=== PATIENT | female | born 1950 | race Caucasian/White ===

== ENCOUNTER 2019-03-15 16:26 | Emergency (ER) | payer SELFPAY ==
[2019-03-15 16:31] VITALS: RESP 20; O2SAT 100
[2019-03-15] MEDS ORDERED: Sodium Chloride 0.9% 1,000 ML IV ONE (16:48)
[2019-03-15 17:15] LABS: HEMOGLOBIN 9.5 g/dL (11.0-16.0); LYMPH # 1.4 K/uL (1.0-4.3); MEAN CORPUSCULAR HGB CONC 34.7 g/dL (33.0-37.0); MONO # 0.2 K/uL (0.0-0.8); NEUT # 1.3 K/uL (1.8-7.0); RBC 2.66 Mil/uL (3.80-5.20)
[2019-03-15 17:20] LABS: SQUAMOUS EPITHIAL 1 /hpf (0-5); URINE BACTERIA RARE (<OCC)
[2019-03-15 17:25] LABS: BASO % 0.2 % (0.0-2.0); LYMPH % 48.3 % (20.0-40.0); MEAN CELL VOLUME 102.8 fL (81.0-99.0); MEAN CORPUSCULAR HEMOGLOBIN 35.7 pg (27.0-31.0); MEAN PLATELET VOLUME 8.7 fL (7.2-11.7); MONO % 7.8 % (0.0-10.0); NEUT % 42.7 % (50.0-75.0); NRBC % 0.2 % (0.0-2.0); RED CELL DISTRIBUTION WIDTH 15.8 % (11.5-14.5)
[2019-03-15 17:26] LABS: URINE BILIRUBIN NEGATIVE (NEGATIVE); URINE BLOOD MODERATE (NEGATIVE); URINE CLARITY CLEAR (Clear); URINE COLOR YELLOW (YELLOW); URINE GLUCOSE (UA) NEG (Normal); URINE LEUKOCYTE ESTERASE TRACE Leu/uL (Negative); URINE PROTEIN NEGATIVE (NEGATIVE); URINE UROBILINOGEN 0.2 mg/dL (0.2-1.0)
[2019-03-15 17:34] LABS: ALB/GLOB RATIO 1.3 (1.0-2.1); ALBUMIN 4.1 g/dL (3.5-5.0); ALT/SGPT 8 U/L (9-52); AST/SGOT 21 U/L (14-36); BLOOD UREA NITROGEN 18 mg/dL (7-17); GFR NON-AFRICAN AMERICAN > 60; LIPASE 58 U/L (23-300)
[2019-03-15] MEDS ORDERED: Iodixanol 320 MG/ML 100 ML BOTTLE IV ONE (18:21)
[2019-03-15 19:24] VITALS: BP 163/78; PULSE 90; TEMP 97.6
--- NOTE | 2019-03-15 20:35 | C.PDOC ---
History Of Present Illness 68 y/o female presents to ED complaining of right-sided abdominal pain thats been on and off for one month. Patient denies nausea, vomiting, hematuria, or blood in stool. Also denies fever and recent travel. Patient states shes been eating normal. Chief Complaint (Nursing): Abdominal Pain History Per: Patient History/Exam Limitations: no limitations Onset/Duration Of Symptoms: Days Current Symptoms Are (Timing): Still Present Past Medical History Reviewed: Historical Data, Nursing Documentation, Vital Signs Vital Signs: Last Vital Signs Temp 97.6 F 03/15/19 19:23 Pulse 90 03/15/19 19:23 Resp 20 03/15/19 19:23 BP 163/78 H 03/15/19 19:23 Pulse Ox 100 03/15/19 19:23 - Medical History PMH: HTN Surgical History: Cholecystectomy Family History: States: No Known Family Hx - Social History Hx Alcohol Use: No Hx Substance Use: No - Immunization History Hx Tetanus Toxoid Vaccination: No Hx Influenza Vaccination: No Hx Pneumococcal Vaccination: No Review Of Systems Except As Marked, All Systems Reviewed And Found Negative. Constitutional: Negative for: Fever Gastrointestinal: Positive for: Abdominal Pain. Negative for: Nausea, Vomiting, Hematochezia Genitourinary: Negative for: Hematuria Physical Exam - Physical Exam Appears: Non-toxic, No Acute Distress Skin: Warm, Dry Head: Atraumatic Eye(s): bilateral: Normal Inspection Oral Mucosa: Moist Neck: Supple Cardiovascular: Rhythm Regular, No Murmur Respiratory: Normal Breath Sounds, No Rales, No Rhonchi, No Wheezing Gastrointestinal/Abdominal: Soft, Tenderness (minimal mild right-sided abdominal tenderness), No Guarding, No Rebound Extremity: Bilateral: Atraumatic, Normal ROM Neurological/Psych: Oriented x3, Normal Speech ED Course And Treatment - Laboratory Results Result Diagrams: 03/15/19 17:09 03/15/19 17:09 Lab Results: Total Bilirubin 0.3 mg/dL (0.2-1.3) 03/15/19 17:09 AST 21 U/L (14-36) 03/15/19 17:09 ALT 8 U/L (9-52) L 03/15/19 17:09 Alkaline Phosphatase 119 U/L (38-126) 03/15/19 17:09 Total Protein 7.3 g/dL (6.3-8.3) 03/15/19 17:09 Albumin 4.1 g/dL (3.5-5.0) 03/15/19 17:09 Globulin 3.1 gm/dL (2.2-3.9) 03/15/19 17:09 Albumin/Globulin Ratio 1.3 (1.0-2.1) 03/15/19 17:09 Lipase 58 U/L (23-300) 03/15/19 17:09 Urine Color Yellow (YELLOW) 03/15/19 17:09 Urine Clarity Clear (Clear) 03/15/19 17:09 Urine pH 6.0 (5.0-8.0) 03/15/19 17:09 Ur Specific Page 1.025 (1.003-1.030) 03/15/19 17:09 Urine Protein Negative mg/dL (NEGATIVE) 03/15/19 17:09 Urine Glucose (UA) Neg mg/dL (Normal) 03/15/19 17:09 Urine Ketones Negative mg/dL (NEGATIVE) 03/15/19 17:09 Urine Blood Moderate (NEGATIVE) 03/15/19 17:09 Urine Nitrate Negative (NEGATIVE) 03/15/19 17:09 Urine Bilirubin Negative (NEGATIVE) 03/15/19 17:09 Urine Urobilinogen 0.2 mg/dL (0.2-1.0) 03/15/19 17:09 Ur Leukocyte Esterase Trace Carlo/uL (Negative) 03/15/19 17:09 Urine WBC (Auto) 6 /hpf (0-5) H 03/15/19 17:09 Urine RBC (Auto) 14 /hpf (0-3) H 03/15/19 17:09 Ur Squamous Epith Cells 1 /hpf (0-5) 03/15/19 17:09 Urine Bacteria Rare (<OCC) 03/15/19 17:09 O2 Sat by Pulse Oximetry: 100 (RA) Pulse Ox Interpretation: Normal - CT Scan/US Abd/Pel CT Other Rad Studies (CT/US): Read By Radiologist, Radiology Report Reviewed CT/US Interpretation: FINDINGS: LUNG BASES: The lung bases appear clear. No pleural effusions are seen. LIVER: Unremarkable. GALLBLADDER AND BILE DUCTS: The gallbladder has been surgically removed. PANCREAS: Unremarkable. SPLEEN: Unremarkable. ADRENAL GLANDS: Unremarkable. KIDNEYS, URETERS, AND BLADDER: The kidneys appear within normal limits. There is no hydronephrosis or hydroureter. No urinary calculi are seen. STOMACH AND BOWEL: Unremarkable appearance of the stomach and bowel. No evidence of bowel obstruction. No evidence suggesting enteritis or colitis. Mild diverticular changes present sigmoid colon. Moderate amount of fecal material right side of the colon. APPENDIX: No evidence of acute appendicitis on CT examination. PERITONEUM: No free fluid. No free air. LYMPH NODES: No lymphadenopathy is evident. REPRODUCTIVE: Unremarkable as visualized. VASCULATURE: No evidence of abdominal aortic aneurysm. BONES: No aggressive appearing osseous lesion. No acute osseous pathology evident. IMPRESSION: Status post cholecystectomy. No suspicious mass or lymphadenopathy. Diverticular changes sigmoid colon. Moderate amount of fecal material right side of the colon. Clinical correlation advised. . Electronically signed on Mar 15, 2019 7:06:11 PM EDT by: Benoit Iqbal M.D., Certified by [employer], Diagnostic Radiology Medical Decision Making Medical Decision Making: Plan: --Abd/Pel CT --Labs --UA --IV fluids --Urine Culture Progress: Reviewed lab results and CT with patient. Patient does have a PMD and was advised to follow up early this week. If not able to do so, follow up with our clinic. Disposition - Disposition Referrals: [facility] [Outside] [facility] [Outside] Disposition: HOME/ ROUTINE Disposition Time: 19:00 Condition: GOOD Additional Instructions: W[place] MALIK, thank you for letting us take care of you today. The emergency medical care you received today was directed at your acute symptoms. If you were prescribed any medication, please fill it and take as directed. It may take several days for your symptoms to resolve. Return to the Emergency Department if your symptoms worsen, do not improve, or if you have any other problems. Please contact your doctor or call one of the physicians/clinics you have been referred to that are listed on the Patient Visit Information form that is included in your discharge packet. Bring any paperwork you were given at discharge with you along with any medications you are taking to your follow up visit. Our treatment cannot replace ongoing medical care by a primary care provider outside of the emergency department. Thank you for allowing the [facility] team to be part of your care today. Follow up with your doctor in 1-2 days. If you are not able to get an appointment this week, please follow up with our clinic. Prescriptions: Docusate [Colace] 100 mg PO Q8 PRN #20 cap PRN Reason: Constipation Instructions: High Fiber Diet, Constipation, Adult (DC) Forms: [employer] (Puerto [place]ican) - Clinical Impression Clinical Impression: Constipation, Thrombocytopenia, Anemia - Scribe Statement The provider has reviewed the documentation as recorded by the Karla Velazquez Provider Attestation: All medical record entries made by the Christiibhenrietta were at my direction and persona lly dictated by me. I have reviewed the chart and agree that the record accurately reflects my personal performance of the history, physical exam, medical decision making, and the department course for this patient. I have also personally directed, reviewed, and agree with the discharge instructions and disposition.
--- NOTE | 2019-03-16 12:38 | CT ---
Date of service: 03/15/2019 PROCEDURE: CT Abdomen and Pelvis with contrast HISTORY: right-sided abdominal pain COMPARISON: None available. TECHNIQUE: Contrast dose: 100 mL Visipaque 320 IV Radiation dose: Total exam DLP = 610.11 mGy-cm. This CT exam was performed using one or more of the following dose reduction techniques: Automated exposure control, adjustment of the mA and/or kV according to patient size, and/or use of iterative reconstruction technique. FINDINGS: LOWER THORAX: Bibasilar atelectasis. No visible pleural effusion or pneumothorax. LIVER: 4 mm hepatic dome hypodensity, too small to characterize; statistically likely cyst or hemangioma. GALLBLADDER AND BILE DUCTS: The gallbladder is not visualized either surgically resected or contracted. PANCREAS: Unremarkable. SPLEEN: Unremarkable. ADRENALS: Unremarkable. KIDNEYS AND URETERS: The kidneys enhance symmetrically. No hydronephrosis or obstructing calculus identified. VASCULATURE: No aortic aneurysm. Atherosclerotic calcifications of the aorta.. BOWEL: Stomach is nondistended. Lack of oral contrast limits evaluation for bowel pathology. Bowel loops appear within normal limits of caliber without evidence of obstruction. Diverticulosis without CT evidence of acute diverticulitis. Mild to moderate constipation. APPENDIX: No secondary signs of acute appendicitis. PERITONEUM: No significant free fluid. No definite free air. LYMPH NODES: No bulky adenopathy identified. BLADDER: Mildly thick-walled urinary bladder likely exaggerated by under distension. REPRODUCTIVE: The uterus is present. BONES: Osseous demineralization. Degenerative changes. OTHER FINDINGS: None. IMPRESSION: 4 mm hepatic dome hypodensity, too small to characterize; statistically likely cyst or hemangioma. The gallbladder is not identified presumably due to cholecystectomy. Diverticulosis without CT evidence of acute diverticulitis. Mild to moderate constipation. Mildly thick-walled urinary bladder may be exaggerated by under distension. Additional findings as above. Preliminary impression was provided by [facility].
== END 2019-03-15 20:00 | disposition home or self-care (01) ==
LOC: C.ER 16:26
DX: K59.00 Constipation, unspecified (principal); D69.6 Thrombocytopenia, unspecified; D64.9 Anemia, unspecified
CPT/HCPCS: 74177; 80053; 81001; 83690; 85025; 87086; 96360; 96361; 99284; J7030; Q9967

== ENCOUNTER 2019-03-31 08:07 | Outpatient (CLI) | payer OTHER | END 2019-03-31 08:08 | disposition home or self-care (01) | LOC: C.LAB 08:07 ==